=== PATIENT | male | born 1945 | race Hispanic/Latino ===

== ENCOUNTER 2018-02-18 07:19 | Observation (INO) | payer OTHER ==
[2018-02-17 16:34] LABS: BASOPHILS % (AUTO) 0.5 % (0.0-5.0); EOSINOPHILS % (AUTO) 1.3 % (0.0-8.0); MEAN CORPUSCULAR HEMOGLOBIN 28.4 pg (27.0-33.0); MEAN CORPUSCULAR HGB CONC 32.4 g/dL (32.0-36.0); MEAN CORPUSCULAR VOLUME 87.8 fL (79-99); MONOCYTES % (AUTO) 9.9 % (3.0-13.0); NEUTROPHILS % (AUTO) 64.3 % (40.0-77.0); PLATELET COUNT (AUTO) 235 K/uL (130-400); WHITE BLOOD COUNT (AUTO) 5.9 K/uL (4.8-10.8)
[2018-02-17 16:36] LABS: APPEARANCE,URINE Clear (CLEAR); BILIRUBIN,URINE Negative (NEGATIVE); COLOR,URINE Yellow (YELLOW); GLUCOSE, URINE (UA) Negative (NEGATIVE); KETONES,URINE Negative (NEGATIVE); LEUKOCYTE ESTERASE ,URINE Negative (NEGATIVE); NITRATE,URINE Negative (NEGATIVE); OCCULT BLOOD,URINE Negative (NEGATIVE); PROTEIN,URINE Negative (NEGATIVE)
[2018-02-17 16:43] LABS: CREATININE 1.1 mg/dL (0.5-1.5); POTASSIUM 4.1 mmol/L (3.5-5.1)
[2018-02-17 16:44] VITALS: BP 144/68
[2018-02-17 16:45] LABS: INR 0.99 (0.85-1.15); PARTIAL THROMBOPLASTIN TIME 30.2 SEC (26.3-35.5); PROTHROMBIN TIME 10.4 SEC (9.6-11.6)
[~2018-02-18] VITALS: Ht 165.1 cm; Wt 75.3 kg
[2018-02-18] VITALS (23 sets, daily range): BP systolic 115–160; BP diastolic 62–83
[2018-02-18] MEDS: CEFAZOLIN SODIUM 1 GM VIAL IVP SCH ×3 (06:00→17:54)
[~2018-02-18 07:19] MED LIST: ATOR10TA69 PO; ERGO500014 PO; TAMS0.4C32 PO
[2018-02-18] MEDS ORDERED: TRANEXAMIC ACID 1000MG/10ML IV ONE (08:06)
[2018-02-18] MEDS ORDERED: CEFAZOLIN SODIUM 1 GM VIAL ONE (08:06)
[2018-02-18] MEDS ORDERED: BUPIVACAINE/EPI/PF 0.25% 30ML VIAL IJ ONE (08:06)
[2018-02-18] MEDS ORDERED: LACTATED RINGERS 1000ML 1,000 ML IV ONE (08:28)
[2018-02-18] MEDS ORDERED: ACETAMINOPHEN EXTRA STRENGTH 500 MG TABLET ONE (08:29)
[2018-02-18] MEDS ORDERED: CELECOXIB 200 MG CAP ONE (08:29)
[2018-02-18] MEDS ORDERED: KETOROLAC TROMETHAMINE 15MG/ML ONE (08:30)
[2018-02-18] MEDS ORDERED: OXYCODONE HCL 10 MG TAB.SR.12H PO ONE (08:30)
[2018-02-18] MEDS ORDERED: LIDOCAINE PF 2% 5ML ABBOJECT ONE (08:37)
[2018-02-18] MEDS ORDERED: DEXAMETHASONE SOD PHOSPHATE 10MG/ML 1ML VIAL ONE (08:38)
[2018-02-18] MEDS ORDERED: ONDANSETRON HCL 4 MG/2 ML VIAL ONE (08:38)
[2018-02-18] MEDS ORDERED: PROPOFOL 10 MG/ML 20ML VIAL IV ONE (08:38)
[2018-02-18] MEDS ORDERED: MIDAZOLAM HCL 1 MG/ML 2ML VIAL ONE (08:38)
[2018-02-18] MEDS ORDERED: FENTANYL CITRATE PF 50 MCG/1 ML 2ML VIAL ONE (08:39)
[2018-02-18] MEDS ORDERED: ROPIVACAINE 0.5% 5MG/ML 30ML IJ ONE ×2 (08:42→08:43)
[2018-02-18] MEDS ORDERED: FERROUS FUMARATE 324 MG TABLET PO PRN (12:15)
[2018-02-18] MEDS ORDERED: POTASSIUM CHLORIDE 10% ELIXIR 20 MEQ/15 ML UDCUP PO PRN (12:15)
[2018-02-18] MEDS ORDERED: POTASSIUM CHLORIDE 20 MEQ ERTAB PO PRN (12:15)
[2018-02-18] MEDS ORDERED: OXYCODONE HCL 5 MG TAB PO PRN (12:15)
[2018-02-18] MEDS ORDERED: TEMAZEPAM 15 MG CAPSULE PO PRN (12:15)
[2018-02-18] MEDS ORDERED: TRAMADOL HCL 50 MG TABLET PO PRN (12:15)
[2018-02-18] MEDS: ACETAMINOPHEN EXTRA STRENGTH 500 MG TABLET PO SCH ×2 (12:15→21:10)
[2018-02-18] MEDS ORDERED: ONDANSETRON HCL 4 MG/2 ML VIAL IVP PRN (12:15)
[2018-02-18] MEDS ORDERED: DiphenhydrAMINE HCL 50 MG/ML VIAL IVP PRN (12:15)
[2018-02-18] MEDS ORDERED: KETOROLAC TROMETHAMINE 15MG/ML IV PRN (12:15)
[2018-02-18] MEDS ORDERED: CALCIUM CARBONATE 500 MG TABLET PO PRN (12:15)
[2018-02-18] MEDS ORDERED: LIDOCAINE HCL-MPF 1% 2ML VIAL IVP PRN (12:15)
[2018-02-18] MEDS ORDERED: POTASSIUM CHLORIDE 20MEQ/100ML 100 ML IV PRN (12:15)
[2018-02-18] MEDS ORDERED: EPHEDRINE SULFATE 50 MG/ML AMPULE ONE (12:18)
[2018-02-18] MEDS ORDERED: GLYCOPYRROLATE 1 MG/5 ML SYRINGE ONE (12:29)
[2018-02-18] MEDS: SODIUM CHLORIDE 0.9% 1000ML 1,000 ML IV SCH ×2 (14:38→22:50)
[2018-02-18] MEDS ORDERED: TAMSULOSIN HCL 0.4 MG CAP.ER.24H ONE (21:07)
[2018-02-18] MEDS: ASPIRIN 325 MG TABLET PO SCH (21:10)
[2018-02-18] MEDS: FAMOTIDINE 20MG TAB 20 MG TAB PO SCH (21:10)
[2018-02-18] MEDS: CELECOXIB 200 MG CAP PO SCH (21:10)
[2018-02-18] MEDS: PREGABALIN 25 MG CAP PO SCH (21:10)
[2018-02-18] MEDS: TAMSULOSIN HCL 0.4 MG CAP.ER.24H PO SCH (21:11)
[2018-02-18] MEDS: OXYCODONE HCL 5 MG TAB PO PRN (21:49)
[2018-02-19 00:01] VITALS: BP 132/80
[2018-02-19] MEDS: CEFAZOLIN SODIUM 1 GM VIAL IVP SCH (01:54)
[2018-02-19 04:00] VITALS: BP 136/72
[2018-02-19] MEDS: ACETAMINOPHEN EXTRA STRENGTH 500 MG TABLET PO SCH ×3 (04:07→19:17)
[2018-02-19 04:38] LABS: HEMATOCRIT 37.1 % (42-54); MEAN CORPUSCULAR HGB CONC 33.4 g/dL (32.0-36.0); MEAN CORPUSCULAR VOLUME 86.6 fL (79-99); PLATELET COUNT (AUTO) 204 K/uL (130-400); RED BLOOD CELL COUNT(AUTO) 4.28 MIL/uL (4.50-6.20); RED CELL DISTRIBUTION WIDTH 13.8 % (11.0-15.5); WHITE BLOOD COUNT (AUTO) 8.1 K/uL (4.8-10.8)
[2018-02-19 04:47] LABS: CREATININE 1.1 mg/dL (0.5-1.5); POTASSIUM 3.7 mmol/L (3.5-5.1)
[2018-02-19] MEDS: OXYCODONE HCL 5 MG TAB PO PRN ×2 (06:37→22:28)
[2018-02-19 07:00] VITALS: BP 123/67
[2018-02-19] MEDS: SODIUM CHLORIDE 0.9% 1000ML 1,000 ML IV SCH (08:03)
[2018-02-19] MEDS: PREGABALIN 25 MG CAP PO SCH ×2 (08:35→19:17)
[2018-02-19] MEDS: POLYETHYLENE GLYCOL 3350 17 GM POWD.PACK PO SCH (08:35)
[2018-02-19] MEDS: CELECOXIB 200 MG CAP PO SCH ×2 (08:35→19:17)
[2018-02-19] MEDS: FAMOTIDINE 20MG TAB 20 MG TAB PO SCH ×2 (08:35→19:17)
[2018-02-19] MEDS: ATORVASTATIN CALCIUM 10 MG TABLET PO SCH (08:35)
[2018-02-19] MEDS: ASPIRIN 325 MG TABLET PO SCH ×2 (08:35→19:17)
[2018-02-19] MEDS: TAMSULOSIN HCL 0.4 MG CAP.ER.24H PO SCH (08:35)
[2018-02-19] MEDS ORDERED: TAMSULOSIN HCL 0.4 MG CAP.ER.24H PO SCH (09:00)
[2018-02-19 11:15] VITALS: BP 112/68
[2018-02-19 16:08] VITALS: BP 108/59
[2018-02-19 20:16] VITALS: BP 120/72
[2018-02-20] VITALS: BP 113/56
[2018-02-20] MEDS: ACETAMINOPHEN EXTRA STRENGTH 500 MG TABLET PO SCH ×2 (03:54→12:26)
[2018-02-20 04:00] VITALS: BP 125/67
[2018-02-20 07:39] VITALS: BP 130/77
[2018-02-20] MEDS: ASPIRIN 325 MG TABLET PO SCH (09:25)
[2018-02-20] MEDS: TAMSULOSIN HCL 0.4 MG CAP.ER.24H PO SCH (09:25)
[2018-02-20] MEDS: CELECOXIB 200 MG CAP PO SCH (09:25)
[2018-02-20] MEDS: FAMOTIDINE 20MG TAB 20 MG TAB PO SCH (09:26)
[2018-02-20] MEDS: PREGABALIN 25 MG CAP PO SCH (09:26)
[2018-02-20] MEDS: POLYETHYLENE GLYCOL 3350 17 GM POWD.PACK PO SCH (09:26)
[2018-02-20] MEDS: ATORVASTATIN CALCIUM 10 MG TABLET PO SCH (09:26)
[2018-02-20 11:29] VITALS: BP 136/72
[2018-02-20] MEDS ORDERED: HYDR-309 PO (13:46)
[2018-02-20] MEDS ORDERED: ASPI-1012 PO (13:46)
[2018-02-21] MEDS ORDERED: BISACODYL 10 MG SUPP.RECT RC PRN (12:15)
[2018-02-23] MEDS ORDERED: ERGOCALCIFEROL (VITAMIN D2) 50,000 UNIT CAPSULE PO SCH (09:00)
== END 2018-02-20 17:30 | disposition home health service (06) ==
LOC: DAH 07:19 → 4CH 07:20 → DAH 07:20 → 4AH 20:17
PROVIDERS: ADMIT Orthopaedic Surgery; ATTEND Orthopaedic Surgery
DX: M17.12 Unilateral primary osteoarthritis, left knee (principal); Z79.01 Long term (current) use of anticoagulants; Z79.899 Other long term (current) drug therapy; Z23 Encounter for immunization
CPT/HCPCS: 27447; 36415 ×2; 80048 ×2; 81003; 85025; 85027; 85610; 85730; 88305; 88311; 90471; 96374; 96376; 97116 ×5; 97161; 97530 ×4; A4215; A4218; A4600; A4649 ×5; A4930; A9272; C1763; C1776; G0378 ×58; G8978; G8979; G8980; G8981; G8982; G8983; J0690 ×5; J1100; J1885; J2001; J2250; J2405; J2704; J2795 ×2; J3010; J3490 ×3; J7030; J7120; Q2038; 90686

== ENCOUNTER → 2022-06-21 | Outpatient (CLI) | payer OTHER ==
[~2022-06-21] MED LIST changes: +AEC81 PO; +AMIO200T44 PO; +APIX5TAB PO; -ATOR10TA69 PO; +ATOR40TA69 PO; +CLOP-31 PO; -ERGO500014 PO; +FERS325 PO; +FURO20TA6 PO; +METO25TA3 PO; +OXYB5TAB27 PO; +PANT40TA54 PO; +POLY17PO4 PO
== END | disposition home or self-care (01) ==
LOC: SHCH 10:01
PROVIDERS: ATTEND Student in an Organized Health Care Education/Training Program
DX: R06.00 Dyspnea, unspecified (principal); I25.810 Atherosclerosis of coronary artery bypass graft(s) without angina pectoris; I34.0 Nonrheumatic mitral (valve) insufficiency
CPT/HCPCS: 93306

== ENCOUNTER → 2022-12-26 | Outpatient (CLI) | payer OTHER | END | disposition home or self-care (01) | LOC: SHCH 13:03 | PROVIDERS: ATTEND Student in an Organized Health Care Education/Training Program | DX: I35.8 Other nonrheumatic aortic valve disorders (principal); I11.9 Hypertensive heart disease without heart failure; R55 Syncope and collapse; E78.5 Hyperlipidemia, unspecified; Z95.1 Presence of aortocoronary bypass graft | CPT/HCPCS: 93306 ==

== ENCOUNTER → 2025-05-25 | Outpatient (CLI) | payer OTHER ==
[~2025-05-25] MED LIST changes: +IOHEXOL 350 MG/ML 100ML INFUS..BTL IV ONE
--- NOTE | 2025-05-29 16:13 | CARDIOLOGY ---
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 A dedicated, limited window, coronary imaging protocol was used, with single breath-hold, retrospective ECG gating, and automated arrhythmia rejection. 100 cc of low osmolar contrast agent: Omnipaque 350 was delivered via a 18-gauge IV catheter in the right antecubital fossa, using a power injector and followed by 60 cc of normal saline bolus as a chaser. Collimated images were reformatted at 0.5 mm intervals, and sent to an offline independent workstation for interpretation, using 3D anatomic reconstructions: Curved multiplanar reconstructions, maximum intensity projections, and multiplanar imaging. No metoprolol was administered prior to scanning due to low baseline heart rate. 0.8 mg SL nitroglycerin was given. CORONARY ARTERY DESCRIPTIONS: The coronary arteries arise in normal position. Left main coronary artery: Normal caliber vessel that bifurcates into the LAD and LCx. No stenosis. Left anterior descending coronary artery: Normal caliber vessel and gives rise to diagonal and septal branches. There is mixed calcified and noncalcified plaque in the proximal LAD with 70-80% stenosis. Left circumflex coronary artery: Normal caliber, nondominant and gives rise to a large OM branch. There is mixed calcified and noncalcified plaque in the proximal and mid LCx with 40-50% stenosis. Right coronary artery: Large, dominant vessel giving rise to the PL and PDA branches. There is mixed calcified and noncalcified plaque in the proximal RCA with 70-80% stenosis. Patent H[place] to LAD. Patent SVG to RCA. Thoracic Aorta: Normal diameter. Fani Colunga MD Cardiovascular Disease [facility] FANI COLUNGA MD May 29, 2025 16:12
== END | disposition home or self-care (01) ==
LOC: RAH 06:59
PROVIDERS: ATTEND Student in an Organized Health Care Education/Training Program
DX: I25.10 Atherosclerotic heart disease of native coronary artery without angina pectoris (principal); R06.09 Other forms of dyspnea
CPT/HCPCS: 75574; Q9967